=== PATIENT | female | born 1990 | race African-American/Black ===

== ENCOUNTER 2021-03-29 21:56 | Emergency (ER) | payer OTHER, SELFPAY ==
[2021-03-29 22:02] VITALS: BP 117/86; PULSE 100; RESP 18; TEMP 36.4; O2SAT 98; BMI 23.0
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
[2021-03-29] MEDS: Cyclobenzaprine HCl 5 MG TABLET PO (23:43)
[2021-03-29] MEDS: NaPROXEN 500 MG TABLET PO (23:43)
== END 2021-03-30 00:08 | disposition home or self-care (01) ==
PROVIDERS: Emergency Provider Student in an Organized Health Care Education/Training Program
DX: S13.4XXA Sprain of ligaments of cervical spine, initial encounter (principal); M54.2 Cervicalgia; V43.52XA Car driver injured in collision with other type car in traffic accident, initial encounter; Y93.9 Activity, unspecified; Y92.410 Unspecified street and highway as the place of occurrence of the external cause; Y99.9 Unspecified external cause status; Z79.899 Other long term (current) drug therapy
CPT/HCPCS: 99284